=== PATIENT | female | born 2000 | race Caucasian/White ===

== ENCOUNTER → 2020-07-20 | Outpatient (CLI) | payer OTHER ==
[~2020-07-20] MED LIST: IBUPROFEN600 MG PO
== END ==
LOC: KOH-I 07-16 16:00
DX: M25.531 Pain in right wrist (principal)
CPT/HCPCS: 73221

== ENCOUNTER 2020-12-29 17:55 | Emergency (ER) | payer OTHER ==
[2020-12-29] MEDS ORDERED: ZOFRAN4 MG PO (18:56)
[2020-12-29] MEDS ORDERED: NAPROXEN500 MG PO (18:56)
[2020-12-29] MEDS ORDERED: CLEOCIN HCL300 MG PO (18:56)
[2020-12-29] MEDS ORDERED: Viscous Lidocaine2% TOP (18:56)
== END 2020-12-29 19:04 | disposition home or self-care (01) ==
LOC: ER1 17:55
DX: K08.89 Other specified disorders of teeth and supporting structures (principal); F17.290 Nicotine dependence, other tobacco product, uncomplicated; Z91.040 Latex allergy status
CPT/HCPCS: 99282

== ENCOUNTER → 2021-04-19 | Outpatient (CLI) | payer OTHER ==
[~2021-04-19] MED LIST changes: +CLEOCIN HCL300 MG PO; +NAPROXEN500 MG PO; +Viscous Lidocaine2% TOP; +ZOFRAN4 MG PO
== END ==
LOC: KOH-I 12:57
DX: M54.6 Pain in thoracic spine (principal)
CPT/HCPCS: 72146; 72148